=== PATIENT | male | born 1980 | race Caucasian/White ===

== ENCOUNTER 2016-06-22 15:59 | Emergency (ER) | payer OTHER ==
--- NOTE | 2016-06-22 17:38 | ED ORDER SUMMARY ---
..... Patient: AMINTA KIM OrderSheet [facility] VisitID: [id number] [place] [address] 35y, M Registration Date/Time: 06/22/2016 ORDER SHEET Weight: 85.2 kg (stated) Allergies: No Known Drug Allergy GENERAL ORDERS: Eye Irrigation (NS) (17:01 06/22/2016 Raul Boyer) (17:16 LNations ER Tech1) MEDICATION ORDERS: Fluorescein Eye Strips 1 strips (NOW) (16:46 06/22/2016 Raul Boyer) (16:48 KWilliams R.N.) Proparacaine Eye Drops (Solution 0.5 %) 2 drops (place at bedside) (16:46 06/22/2016 Raul Boyer) (16:49 KWilliams R.N.) IV FLUIDS: ORDER SHEET NOTES: [Electronically signed by Brian Fernandez R.N. (22:44 06/22/2016)] [Electronically signed by Paco Shukla Dr. (05:28 06/25/2016)] [Electronically locked/signed by Brian Fernandez R.N. (22:44 06/22/2016)]
--- NOTE | 2016-06-22 17:38 | ED NURSING NOTES ---
Clinical Report - Nurses [facility] [address] [place] [address] 06/22/2016 16:02 Patient: AMINTA KIM TRIAGE Triage time 16:08. Acuity: LEVEL 4. Chief Complaint: PAIN and FOREIGN BODY TO RIGHT EYE. Alert. No acute distress. SEPSIS SCREEN: Sepsis Screen. Negative (no infection suspected/documented). VISUAL ACUITY: Visual acuity performed without corrective lenses: left eye 20/15; right eye 20/30; both eyes 20/15. Patient does not wear corrective lenses. ELIZABETH COMA SCORE: Elizabeth Coma Scale: 15- eyes open spontaneously (4); best verbal response- oriented x 4 (5); best motor response- obeys commands (6). --16:16 Brian Fernandez R.N. 16:10 06/22/16. BP: 127/80. HR: 78. RR: 16. O2 saturation: 97% on room air. Temp: 98.2 F (oral). Pain level now 7/10. --16:16 Brian Fernandez R.N. Weight: 85.2 kg stated. Height/Length: 70 inches Per Patient. BMI: 27. --16:12 Brian Fernandez R.N. Medications None. --16:13 Brian Fernandez R.N. Allergies No Known Drug Allergy. --16:13 Brian Fernandez R.N. Medication/allergy information source: the patient. --16:16 Brian Fernandez R.N. History Arrived by private vehicle. Primary physician (no pcp). ( pt presents c/o possible FB in right eye. States eye has been irritated for 3 weeks and irritation comes and goes. He presents today stating that eye is irritated and hasn't resolved as it usually does following flushing it. He hasn't visualized any fb in eye). Onset. (3 weeks ago). He did not sustain an injury. 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 SOCIAL HX: Never smoker. Occasional alcohol use. No drug use. ABUSE ASSESSMENT: No report of abuse. FALL RISK ASSESSMENT: Fall risk assessment completed. No fall risk identified. NUTRITIONAL RISK ASSESSMENT: The nutritional risk assessment revealed no deficiencies. FUNCTIONAL ASSESSMENT: Functional assessment: no impairments noted. LEARNING NEEDS ASSESSMENT: The learning needs assessment revealed no barriers. SKIN INTEGRITY ASSESSMENT: Skin integrity risk assessment completed. No skin integrity risk identified. --16:16 Brian Fernandez R.N. PROBLEMS: no known problems. ADDITIONAL SURGERIES: Appendectomy. --16:13 Brian Fernandez R.N. Interventions ID band on patient. To treatment room. --16:16 Brian Fernandez R.N. PHYSICAL ASSESSMENT Ambulatory to room. GENERAL / NEURO / PSYCH: Alert. Appears in no acute distress. HEENT: No facial asymmetry noted. RESPIRATORY: Respirations not labored. SKIN: Skin is warm and dry. --16:16 Brian Fernandez R.N. HEENT: No ocular injury. --16:17 Brian Fernandez R.N. NURSING PROGRESS NOTES 16:17 06/22/16. The plan of care for this patient has been created. Head of bed elevated. Call light placed in reach. Bed placed in lowest position. Brakes of bed on. Patient ready for evaluation- chart flagged. --16:17 Brian Fernandez R.N. 16:48 06/22/2016 FLUORESCEIN Opth soln Opthalmic solution 1 Strip given. (given to ). --16:48 Brian Fernandez R.N. 16:49 06/22/2016 Proparacaine Eye Drops Opthalmic solution 2 drop given. (given to ). --16:49 Brian Fernandez R.N. DISPOSITION / DISCHARGE 17:45 06/22/16. Departure time: 1740. Condition at departure: improved and stable. No learning barriers present. Reviewed medication(s) side effects, precautions, dosing and course information. Prescription(s) given to the patient. Patient verbalized understanding. Written instructions provided in Frisian. The patient was discharged by the physician. He was discharged home and accompanied by spouse. He left the Emergency Department ambulatory and via private vehicle. Spouse driving. --17:45 Brian Fernandez R.N. Locked/Released at 06/22/2016 22:44 by Brian Fernandez R.N.
--- NOTE | 2016-06-22 17:38 | ED ORDER SUMMARY ---
..... Patient: AMINTA KIM OrderSheet [facility] VisitID: [id number] [place] [address] 35y, M Registration Date/Time: 06/22/2016 ORDER SHEET Weight: 85.2 kg (stated) Allergies: No Known Drug Allergy GENERAL ORDERS: Eye Irrigation (NS) (17:01 06/22/2016 Raul Boyer) (17:16 LNations ER Tech1) MEDICATION ORDERS: Fluorescein Eye Strips 1 strips (NOW) (16:46 06/22/2016 Raul Boyer) (16:48 KWilliams R.N.) Proparacaine Eye Drops (Solution 0.5 %) 2 drops (place at bedside) (16:46 06/22/2016 Raul Boyer) (16:49 KWilliams R.N.) IV FLUIDS: ORDER SHEET NOTES: [Electronically signed by Brian Fernandez R.N. (22:44 06/22/2016)] [Electronically signed by Paco Shukla Dr. (05:28 06/25/2016)] [Electronically locked/signed by Brian Fernandez R.N. (22:44 06/22/2016)]
--- NOTE | 2016-06-22 17:38 | ED NURSING NOTES ---
Clinical Report - Nurses [facility] [address] [place] [address] 06/22/2016 16:02 Patient: AMINTA KIM TRIAGE Triage time 16:08. Acuity: LEVEL 4. Chief Complaint: PAIN and FOREIGN BODY TO RIGHT EYE. Alert. No acute distress. SEPSIS SCREEN: Sepsis Screen. Negative (no infection suspected/documented). VISUAL ACUITY: Visual acuity performed without corrective lenses: left eye 20/15; right eye 20/30; both eyes 20/15. Patient does not wear corrective lenses. ELIZABETH COMA SCORE: Elizabeth Coma Scale: 15- eyes open spontaneously (4); best verbal response- oriented x 4 (5); best motor response- obeys commands (6). --16:16 Brian Fernandez R.N. 16:10 06/22/16. BP: 127/80. HR: 78. RR: 16. O2 saturation: 97% on room air. Temp: 98.2 F (oral). Pain level now 7/10. --16:16 Brian Fernandez R.N. Weight: 85.2 kg stated. Height/Length: 70 inches Per Patient. BMI: 27. --16:12 Brian Fernandez R.N. Medications None. --16:13 Brian Fernandez R.N. Allergies No Known Drug Allergy. --16:13 Brian Fernandez R.N. Medication/allergy information source: the patient. --16:16 Brian Fernandez R.N. History Arrived by private vehicle. Primary physician (no pcp). ( pt presents c/o possible FB in right eye. States eye has been irritated for 3 weeks and irritation comes and goes. He presents today stating that eye is irritated and hasn't resolved as it usually does following flushing it. He hasn't visualized any fb in eye). Onset. (3 weeks ago). He did not sustain an injury. 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 SOCIAL HX: Never smoker. Occasional alcohol use. No drug use. ABUSE ASSESSMENT: No report of abuse. FALL RISK ASSESSMENT: Fall risk assessment completed. No fall risk identified. NUTRITIONAL RISK ASSESSMENT: The nutritional risk assessment revealed no deficiencies. FUNCTIONAL ASSESSMENT: Functional assessment: no impairments noted. LEARNING NEEDS ASSESSMENT: The learning needs assessment revealed no barriers. SKIN INTEGRITY ASSESSMENT: Skin integrity risk assessment completed. No skin integrity risk identified. --16:16 Brian Fernandez R.N. PROBLEMS: no known problems. ADDITIONAL SURGERIES: Appendectomy. --16:13 Brian Fernandez R.N. Interventions ID band on patient. To treatment room. --16:16 Brian Fernandez R.N. PHYSICAL ASSESSMENT Ambulatory to room. GENERAL / NEURO / PSYCH: Alert. Appears in no acute distress. HEENT: No facial asymmetry noted. RESPIRATORY: Respirations not labored. SKIN: Skin is warm and dry. --16:16 Brian Fernandez R.N. HEENT: No ocular injury. --16:17 Brian Fernandez R.N. NURSING PROGRESS NOTES 16:17 06/22/16. The plan of care for this patient has been created. Head of bed elevated. Call light placed in reach. Bed placed in lowest position. Brakes of bed on. Patient ready for evaluation- chart flagged. --16:17 Brian Fernandez R.N. 16:48 06/22/2016 FLUORESCEIN Opth soln Opthalmic solution 1 Strip given. (given to ). --16:48 Brian Fernandez R.N. 16:49 06/22/2016 Proparacaine Eye Drops Opthalmic solution 2 drop given. (given to ). --16:49 Brian Fernandez R.N. DISPOSITION / DISCHARGE 17:45 06/22/16. Departure time: 1740. Condition at departure: improved and stable. No learning barriers present. Reviewed medication(s) side effects, precautions, dosing and course information. Prescription(s) given to the patient. Patient verbalized understanding. Written instructions provided in Kyrgyz. The patient was discharged by the physician. He was discharged home and accompanied by spouse. He left the Emergency Department ambulatory and via private vehicle. Spouse driving. --17:45 Brian Fernandez R.N. Locked/Released at 06/22/2016 22:44 by Brian Fernandez R.N.
--- NOTE | 2016-06-22 17:38 | ED CLINICAL REPORT ---
Clinical Report - Physicians/Mid Levels [facility] [address] [place] [address] 06/22/2016 16:02 Patient: AMINTA KIM Time Seen: 1641. Arrived- By private vehicle. Historian- patient. HISTORY OF PRESENT ILLNESS Chief Complaint: EYE FOREIGN BODY. This started today although has been going on for the past 3 weeks intermittently, involves the right eye and is characterized as moderate in severity. The patient did not sustain an injury. This occurred at home. He possibly has foreign material in the right eye. Not injured from contact lenses. No direct trauma to the eyes. No chemical exposure or UV light exposure. Eye irritation and matting. Patient also notes other injury (none). ( foreign body sensation in the right eye). REVIEW OF SYSTEMS No fever or cough. All systems otherwise negative, except as recorded above. PAST HISTORY See nurses notes. Tetanus immunization status is up-to-date. SOCIAL HISTORY Never smoker. No alcohol use or drug use. PHYSICAL EXAM Appearance: Alert. Oriented X3. (nontoxic appearance). No mild distress. HEENT: Ears normal. Nose normal. Pharynx normal. Head appears normal to external inspection. Eyes: Visual acuity noted- see nurse's notes. negative Rajan sign. No uptake of forcing dye. No cell and flare. No foreign bodies noted. Right-sided conjunctival injection. No foreign bodies noted even on lid eversion. Lids and lashes and lacrimal's appear normal on gross inspection. No discharge. Pupils are equally round and reactive to light at 3 mm. Extraocular movements are intact without pain. No consensual photophobia. No proptosis of the eye. CVS: Normal heart rate and rhythm. Heart sounds normal. Respiratory: No respiratory distress. Breath sounds normal. Skin: No rash. PROGRESS AND PROCEDURES Course of Care: the patient is a pleasant 35-year-old male presenting for a foreign body sensation in the right eye. On examination there is some irritation of the patient's eye however there is no significant signs of corneal abrasion, foreign body, chalazeon, or hordeolum. was unable to visualize any signs of foreign body on examinationhowever patient reports the foreign body sensation still there. Patient is pointing to the upper eyelid. Because of this, patient's eye will be irrigated with normal saline solution. Patient is agreeable to the treatment and plan. Patient did also get some relief with the proparacaine eyedrops. Had discussion patient in regards to proparacaine eyedrops and recent studies sighting the improved ssymptoms of pain and discomfort with the eye without delaying healing or increased risk of cataract formation. Did cites that the literature wasrather new and the patient should exercise extreme caution with using the proparacaine eyedrops at home. Patient expressed understanding of these instructions and was agreeable to them. Patient was reevaluated after the eye was irrigated. Patient reports significant improvement with symptoms while here. Discussed with patient's workup here in the emergency department included home care, follow-up, and return precautions. All questions have been answered. The patient expressed understanding of these instructions and was agreeable to them. Prophylactic antibiotic prescription for erythromycin provided. Follow up with ophthalmology in the next 24-48 hours recommended. Disposition: Discharged. Condition: good. CLINICAL IMPRESSION 06/22/2016 16:10 BP: 127/80. HR: 78. RR: 16. O2 saturation: 97%. Temp: 98.2 F. Blood pressure normal. Oxygen saturation normal. Acute eye pain right eye. Retained conjunctival foreign body to right eye. INSTRUCTIONS Warnings: GENERAL WARNINGS: Return or contact your physician immediately if your condition worsens or changes unexpectedly, if not improving as expected, or if other problems arise. Specifically return if pain, vomiting, bleeding, breathing difficulty or fever. Your Current Medications: CONTINUE TAKING THE FOLLOWING MEDICATIONS: None*. Prescription Medications: Erythromycin ophthalmic ointment 0.5% : apply 0.5 inch to inner aspect of the lower lid on the affected eye every 4 hours while awake for 7 days. Dispense sufficient quantity. No refill. Follow-up: Return to the emergency department as needed. Follow up with your doctor in one week. Reason for referral: recheck today's concerns. Summary of care provided to patient via paper. Screening today revealed the patient's blood pressure to be in the normal range. The patient should follow up with a primary care provider for blood pressure management. Understanding of the discharge instructions verbalized by patient. Follow-up with: Thalia Martin MD, Ophthalmology, [facility], [address] [place] [address] Drive - [address], , [place], [address] Follow up. Reason for referral: recheck today's concerns in 1 - 2 days. Summary of care provided to patient via paper. (Electronically signed by Paco Shukla Dr. 06/25/2016 5:28)
--- NOTE | 2016-06-22 17:38 | ED CLINICAL REPORT ---
Clinical Report - Physicians/Mid Levels [facility] [address] [place] [address] 06/22/2016 16:02 Patient: AMINTA KIM Time Seen: 1641. Arrived- By private vehicle. Historian- patient. HISTORY OF PRESENT ILLNESS Chief Complaint: EYE FOREIGN BODY. This started today although has been going on for the past 3 weeks intermittently, involves the right eye and is characterized as moderate in severity. The patient did not sustain an injury. This occurred at home. He possibly has foreign material in the right eye. Not injured from contact lenses. No direct trauma to the eyes. No chemical exposure or UV light exposure. Eye irritation and matting. Patient also notes other injury (none). ( foreign body sensation in the right eye). REVIEW OF SYSTEMS No fever or cough. All systems otherwise negative, except as recorded above. PAST HISTORY See nurses notes. Tetanus immunization status is up-to-date. SOCIAL HISTORY Never smoker. No alcohol use or drug use. PHYSICAL EXAM Appearance: Alert. Oriented X3. (nontoxic appearance). No mild distress. HEENT: Ears normal. Nose normal. Pharynx normal. Head appears normal to external inspection. Eyes: Visual acuity noted- see nurse's notes. negative Rajan sign. No uptake of forcing dye. No cell and flare. No foreign bodies noted. Right-sided conjunctival injection. No foreign bodies noted even on lid eversion. Lids and lashes and lacrimal's appear normal on gross inspection. No discharge. Pupils are equally round and reactive to light at 3 mm. Extraocular movements are intact without pain. No consensual photophobia. No proptosis of the eye. CVS: Normal heart rate and rhythm. Heart sounds normal. Respiratory: No respiratory distress. Breath sounds normal. Skin: No rash. PROGRESS AND PROCEDURES Course of Care: the patient is a pleasant 35-year-old male presenting for a foreign body sensation in the right eye. On examination there is some irritation of the patient's eye however there is no significant signs of corneal abrasion, foreign body, chalazeon, or hordeolum. was unable to visualize any signs of foreign body on examinationhowever patient reports the foreign body sensation still there. Patient is pointing to the upper eyelid. Because of this, patient's eye will be irrigated with normal saline solution. Patient is agreeable to the treatment and plan. Patient did also get some relief with the proparacaine eyedrops. Had discussion patient in regards to proparacaine eyedrops and recent studies sighting the improved ssymptoms of pain and discomfort with the eye without delaying healing or increased risk of cataract formation. Did cites that the literature wasrather new and the patient should exercise extreme caution with using the proparacaine eyedrops at home. Patient expressed understanding of these instructions and was agreeable to them. Patient was reevaluated after the eye was irrigated. Patient reports significant improvement with symptoms while here. Discussed with patient's workup here in the emergency department included home care, follow-up, and return precautions. All questions have been answered. The patient expressed understanding of these instructions and was agreeable to them. Prophylactic antibiotic prescription for erythromycin provided. Follow up with ophthalmology in the next 24-48 hours recommended. Disposition: Discharged. Condition: good. CLINICAL IMPRESSION 06/22/2016 16:10 BP: 127/80. HR: 78. RR: 16. O2 saturation: 97%. Temp: 98.2 F. Blood pressure normal. Oxygen saturation normal. Acute eye pain right eye. Retained conjunctival foreign body to right eye. INSTRUCTIONS Warnings: GENERAL WARNINGS: Return or contact your physician immediately if your condition worsens or changes unexpectedly, if not improving as expected, or if other problems arise. Specifically return if pain, vomiting, bleeding, breathing difficulty or fever. Your Current Medications: CONTINUE TAKING THE FOLLOWING MEDICATIONS: None*. Prescription Medications: Erythromycin ophthalmic ointment 0.5% : apply 0.5 inch to inner aspect of the lower lid on the affected eye every 4 hours while awake for 7 days. Dispense sufficient quantity. No refill. Follow-up: Return to the emergency department as needed. Follow up with your doctor in one week. Reason for referral: recheck today's concerns. Summary of care provided to patient via paper. Screening today revealed the patient's blood pressure to be in the normal range. The patient should follow up with a primary care provider for blood pressure management. Understanding of the discharge instructions verbalized by patient. Follow-up with: Thalia Martin MD, Ophthalmology, [facility], [address] [place] [address] Drive [address], , [place], [address] Follow up. Reason for referral: recheck today's concerns in 1 - 2 days. Summary of care provided to patient via paper. (Electronically signed by Paco Shukla Dr. 06/25/2016 5:28)
--- NOTE | 2016-06-25 05:28 | ED DISCHARGE INSTRUCTIONS ---
Patient: AMINTA KIM General Instructions [facility] VisitID: [id number] Shandra Mehta [place] [id number] 35y, M Registration Date/Time: 06/22/2016 06/22/2016 16:10 BP: 127/80. HR: 78. RR: 16. O2 saturation: 97%. Temp: 98.2 F. Blood pressure normal. Oxygen saturation normal. Acute eye pain right eye. Retained conjunctival foreign body to right eye. INSTRUCTIONS Warnings: GENERAL WARNINGS: Return or contact your physician immediately if your condition worsens or changes unexpectedly, if not improving as expected, or if other problems arise. Specifically return if pain, vomiting, bleeding, breathing difficulty or fever. Your Current Medications: CONTINUE TAKING THE FOLLOWING MEDICATIONS: None*. Prescription Medications: Erythromycin ophthalmic ointment 0.5% : apply 0.5 inch to inner aspect of the lower lid on the affected eye every 4 hours while awake for 7 days. Dispense sufficient quantity. No refill. Follow-up: Return to the emergency department as needed. Follow up with your doctor in one week. Reason for referral: recheck today's concerns. Summary of care provided to patient via paper. Screening today revealed the patient's blood pressure to be in the normal range. The patient should follow up with a primary care provider for blood pressure management. Understanding of the discharge instructions verbalized by patient. Follow-up with: Thalia Martin MD, Ophthalmology, [facility], [address] [place] [address] - [address], [place] [address] Follow up. Reason for referral: recheck today's concerns in 1 - 2 days. Summary of care provided to patient via paper. ADDITIONAL INFORMATION Particle In The Eye [Conjunctival F.B., Resolved] The pain in your eye is from a bit of dust or dirt or other small particle that got into your eye. The exam today shows that there is no more particle there. Any discomfort you still have should go away during the next 24 hours. Home Care: Apply a cool compress (towel soaked in cool water) to the eye that hurts. Do this 3-4 times a day. It will help to reduce redness and swelling. You may use decongestant eye drops (such as Visine) to reduce irritation and redness, unless another medicine was prescribed. You may use acetaminophen (Tylenol) or ibuprofen (Motrin, Advil) to control pain, unless another pain medicine was prescribed. [ NOTE: If you have chronic liver or kidney disease or ever had a stomach ulcer or GI bleeding, talk with your doctor before using these medicines.] Follow Up with your doctor or this facility as directed, or if your symptoms do not improve within two days. Get Prompt Medical Attention if any of the following occur: Increased swelling of the eyelid Increased pain or redness in the eye Drainage from the eye Redness in the skin around the eye Erythromycin Eye ointment What is this medicine? ERYTHROMYCIN (er cortez suleman HART sin) is a macrolide antibiotic. It is used to treat bacterial eye infections. It also prevents a certain type of eye infection that can occur in some babies. How should I use this medicine? This medicine is only for use in the eye. Follow the directions on the prescription label. Wash hands before and after use. Tilt your head back slightly and pull your lower eyelid down with your index finger to form a pouch. Try not to touch the tip of the tube, to your eye, fingertips, or any other surface. Squeeze the end of the tube to apply a thin layer of the ointment to the inside of the lower eyelid. Close the eye gently to spread the ointment. Your vision may blur for a few minutes. Use your doses at regular intervals. Do not use your medicine more often than directed. Finish the full course prescribed by your doctor or health critical care nurse specialist even if you think your condition is better. Do not stop using except on the advice of your doctor or health critical care nurse specialist. Talk to your electoral officer regarding the use of this medicine in children. Special care may be needed. What side effects may I notice from receiving this medicine? Side effects that you should report to your doctor or health critical care nurse specialist as soon as possible: allergic reactions like skin rash, itching or hives, swelling of the face, lips, or tongue burning, stinging, or itching of the eyes or eyelids changes in vision redness, swelling, or pain What may interact with this medicine? Interactions are not expected. Do not use any other eye products without telling your doctor or health critical care nurse specialist. What if I miss a dose? If you miss a dose, use it as soon as you can. If it is almost time for your next dose, use only that dose. Do not use double or extra doses. Where should I keep my medicine? Keep out of the reach of children. Store at room temperature between 15 and 30 degrees C (59 and 86 degrees F). Do not freeze. Throw away any unused ointment after the expiration date. What should I tell my health care provider before I take this medicine? if you have an unusual or allergic reaction to erythromycin, foods, dyes, or preservatives or trying to get breast-feeding What should I watch for while using this medicine? Tell your doctor or health critical care nurse specialist if your symptoms do not improve in 2 to 3 days. You have been given the following additional information: Conjunctival Foreign Body, Resolved Erythromycin Eye ointment (Electronically signed by Paco Shukla Dr. 06/25/2016 5:28)
--- NOTE | 2016-06-25 05:28 | ED MAR SUMMARY ---
..... Medication Administration Record [facility] [address] [place] [address] Patient: AMINTA KIM Visit ID: [id number] 35y, M Weight: 85.2 kg Height/Length: 70 in BMI: 27 ALLERGIES: No Known Drug Allergy Given 16:48 06/22/2016 Brian Fernandez RCarlosNCarlos Medication Administered: FLUORESCEIN [EYE STRIPS], Dose: 1 Strip Opthalmic solution Opth soln. Medication Ordered: Fluorescein Eye Strips 1 strips (NOW). Given 16:49 06/22/2016 Brian Fernandez, R.NCarlos Medication Administered: PROPARACAINE [EYE DROPS], Dose: 2 drop Opthalmic solution Eye Drops. Medication Ordered: Proparacaine Eye Drops (Solution 0.5 %) 2 drops (place at bedside).
--- NOTE | 2016-06-25 05:28 | ED MED RECONCILIATION SUMMARY ---
Patient: AMINTA KIM Medication Reconciliation Report [facility] VisitID: [id number] [address] [place] [address] 35y, M Registration Date/Time: 06/22/2016 Weight: 85.2 kg Height/Length: 70 in. BMI: 27.0 ALLERGIES: No Known Drug Allergy The patient's Home Medications are listed below: NONE. The source(s) of the original Home Medication information: patient The following Medications were given to the patient in the Emergency Department: FLUORESCEIN [EYE STRIPS] Opth soln 1 Strip, administered: 06/22/2016 4:48:00 PM Proparacaine [Eye Drops] Eye Drops 2 drop, administered: 06/22/2016 4:49:00 PM The following Medications were prescribed to the patient: Erythromycin ophthalmic ointment 0.5% : apply 0.5 inch to inner aspect of the lower lid on the affected eye every 4 hours while awake for 7 days. Dispense sufficient quantity. No refill. -- Paco Shukla Dr.
--- NOTE | 2016-06-25 05:28 | ED MED RECONCILIATION SUMMARY ---
Patient: AMINTA KIM Medication Reconciliation Report [facility] VisitID: [id number] [address] [place] [address] 35y, M Registration Date/Time: 06/22/2016 Weight: 85.2 kg Height/Length: 70 in. BMI: 27.0 ALLERGIES: No Known Drug Allergy The patient's Home Medications are listed below: NONE. The source(s) of the original Home Medication information: patient The following Medications were given to the patient in the Emergency Department: FLUORESCEIN [EYE STRIPS] Opth soln 1 Strip, administered: 06/22/2016 4:48:00 PM Proparacaine [Eye Drops] Eye Drops 2 drop, administered: 06/22/2016 4:49:00 PM The following Medications were prescribed to the patient: Erythromycin ophthalmic ointment 0.5% : apply 0.5 inch to inner aspect of the lower lid on the affected eye every 4 hours while awake for 7 days. Dispense sufficient quantity. No refill. -- Paco Shukla Dr.
--- NOTE | 2016-06-25 05:28 | ED MAR SUMMARY ---
..... Medication Administration Record [facility] [address] [place] [address] Patient: AMINTA KIM Visit ID: [id number] 35y, M Weight: 85.2 kg Height/Length: 70 in BMI: 27 ALLERGIES: No Known Drug Allergy Given 16:48 06/22/2016 Brian Fernandez RCarlosNCarlos Medication Administered: FLUORESCEIN [EYE STRIPS], Dose: 1 Strip Opthalmic solution Opth soln. Medication Ordered: Fluorescein Eye Strips 1 strips (NOW). Given 16:49 06/22/2016 Brian Fernandez, R.NCarlos Medication Administered: PROPARACAINE [EYE DROPS], Dose: 2 drop Opthalmic solution Eye Drops. Medication Ordered: Proparacaine Eye Drops (Solution 0.5 %) 2 drops (place at bedside).
--- NOTE | 2016-06-25 05:28 | ED DISCHARGE INSTRUCTIONS ---
Patient: AMINTA KIM General Instructions [facility] VisitID: [id number] Shandra Mehta [place] [id number] 35y, M Registration Date/Time: 06/22/2016 06/22/2016 16:10 BP: 127/80. HR: 78. RR: 16. O2 saturation: 97%. Temp: 98.2 F. Blood pressure normal. Oxygen saturation normal. Acute eye pain right eye. Retained conjunctival foreign body to right eye. INSTRUCTIONS Warnings: GENERAL WARNINGS: Return or contact your physician immediately if your condition worsens or changes unexpectedly, if not improving as expected, or if other problems arise. Specifically return if pain, vomiting, bleeding, breathing difficulty or fever. Your Current Medications: CONTINUE TAKING THE FOLLOWING MEDICATIONS: None*. Prescription Medications: Erythromycin ophthalmic ointment 0.5% : apply 0.5 inch to inner aspect of the lower lid on the affected eye every 4 hours while awake for 7 days. Dispense sufficient quantity. No refill. Follow-up: Return to the emergency department as needed. Follow up with your doctor in one week. Reason for referral: recheck today's concerns. Summary of care provided to patient via paper. Screening today revealed the patient's blood pressure to be in the normal range. The patient should follow up with a primary care provider for blood pressure management. Understanding of the discharge instructions verbalized by patient. Follow-up with: Thalia Martin MD, Ophthalmology, [facility], [address] [place] [address] - [address], [place] [address] Follow up. Reason for referral: recheck today's concerns in 1 - 2 days. Summary of care provided to patient via paper. ADDITIONAL INFORMATION Particle In The Eye [Conjunctival F.B., Resolved] The pain in your eye is from a bit of dust or dirt or other small particle that got into your eye. The exam today shows that there is no more particle there. Any discomfort you still have should go away during the next 24 hours. Home Care: Apply a cool compress (towel soaked in cool water) to the eye that hurts. Do this 3-4 times a day. It will help to reduce redness and swelling. You may use decongestant eye drops (such as Visine) to reduce irritation and redness, unless another medicine was prescribed. You may use acetaminophen (Tylenol) or ibuprofen (Motrin, Advil) to control pain, unless another pain medicine was prescribed. [ NOTE: If you have chronic liver or kidney disease or ever had a stomach ulcer or GI bleeding, talk with your doctor before using these medicines.] Follow Up with your doctor or this facility as directed, or if your symptoms do not improve within two days. Get Prompt Medical Attention if any of the following occur: Increased swelling of the eyelid Increased pain or redness in the eye Drainage from the eye Redness in the skin around the eye Erythromycin Eye ointment What is this medicine? ERYTHROMYCIN (er cortez suleman HART sin) is a macrolide antibiotic. It is used to treat bacterial eye infections. It also prevents a certain type of eye infection that can occur in some babies. How should I use this medicine? This medicine is only for use in the eye. Follow the directions on the prescription label. Wash hands before and after use. Tilt your head back slightly and pull your lower eyelid down with your index finger to form a pouch. Try not to touch the tip of the tube, to your eye, fingertips, or any other surface. Squeeze the end of the tube to apply a thin layer of the ointment to the inside of the lower eyelid. Close the eye gently to spread the ointment. Your vision may blur for a few minutes. Use your doses at regular intervals. Do not use your medicine more often than directed. Finish the full course prescribed by your doctor or health resident care director even if you think your condition is better. Do not stop using except on the advice of your doctor or health resident care director. Talk to your sports book board attendant regarding the use of this medicine in children. Special care may be needed. What side effects may I notice from receiving this medicine? Side effects that you should report to your doctor or health resident care director as soon as possible: allergic reactions like skin rash, itching or hives, swelling of the face, lips, or tongue burning, stinging, or itching of the eyes or eyelids changes in vision redness, swelling, or pain What may interact with this medicine? Interactions are not expected. Do not use any other eye products without telling your doctor or health resident care director. What if I miss a dose? If you miss a dose, use it as soon as you can. If it is almost time for your next dose, use only that dose. Do not use double or extra doses. Where should I keep my medicine? Keep out of the reach of children. Store at room temperature between 15 and 30 degrees C (59 and 86 degrees F). Do not freeze. Throw away any unused ointment after the expiration date. What should I tell my health care provider before I take this medicine? if you have an unusual or allergic reaction to erythromycin, foods, dyes, or preservatives or trying to get breast-feeding What should I watch for while using this medicine? Tell your doctor or health resident care director if your symptoms do not improve in 2 to 3 days. You have been given the following additional information: Conjunctival Foreign Body, Resolved Erythromycin Eye ointment (Electronically signed by Paco Shukla Dr. 06/25/2016 5:28)
== END 2016-06-22 17:40 | disposition home or self-care (01) ==
LOC: ED SRH 15:59
DX: T15.12XA Foreign body in conjunctival sac, left eye, initial encounter (principal); X58.XXXA Exposure to other specified factors, initial encounter; Y93.9 Activity, unspecified; Y92.9 Unspecified place or not applicable; Y99.9 Unspecified external cause status